=== PATIENT | male | born 1950 | race Caucasian/White ===

== ENCOUNTER 2016-11-24 02:22 | Emergency (ER) | payer OTHER ==
[~2016-11-24] VITALS: Ht 170.2 cm; Wt 66.3 kg
[~2016-11-24 02:22] MED LIST: ALBU6.7H INH; FOLI1TAB4 PO; LATA0.002 EACH EYE; LORA-361 PO; METH2.5T PO; MOBI7.5T PO; OMEP20TA PO; SIMV80TA PO; SULF500 PO
[2016-11-24 02:27] VITALS: BP 113/65; PULSE 68; RESP 18; TEMP 98.2; O2SAT 94
--- NOTE | 2016-11-24 03:10 | PD ---
HPI Chief Complaint: Pain: Acute or Chronic Time Seen by Provider: 03:06 Travel History International Travel<30 days: No Contact w/Intl Traveler<30days: No Traveled to known affect area: No History of Present Illness HPI The patient is a 66-year-old right-hand dominant male with a history of rheumatoid arthritis who is throwing a 4 x 4 the yard at around 3 PM this afternoon. Approximately 4 hours later he started feeling pain in the wrist. He denies any direct trauma. He has pain and swelling in the right wrist which is progressive and he cannot move his wrist. He has had this happen before with his rheumatoid arthritis. He admits to approximately 8 beers. He complains of sharp pain of an 810. PFSH Past Medical History Arthritis: Yes (RA) Asthma: Yes Cardiovascular Problems: Yes High Cholesterol: Yes COPD: Yes Diminished Hearing: No Diverticulitis: Yes GERD: Yes Hypertension: Yes Respiratory: Yes Immunizations Current: Yes Social History Alcohol Use: Yes (OCC) Tobacco Use: Yes (1 PPD) Substance Use: No Allergies-Medications (Allergen,Severity, Reaction): Coded Allergies: No Known Allergies (Verified , 11/24/16) Reported Meds & Prescriptions Reported Meds & Active Scripts Active Ibuprofen 600 Mg Tab 600 Mg PO TID Reported Allergy Relief (Loratadine) 10 Mg Tab 10 Mg PO DAILY Aspirin Children's (Aspirin) 81 Mg Chew 81 Mg CHEW DAILY Amlodipine (Amlodipine Besylate) 5 Mg Tab 5 Mg PO DAILY Simvastatin 20 Mg Tab 20 Mg PO DAILY Omeprazole 20 Mg Tab 20 Mg PO DAILY Mobic (Meloxicam) 7.5 Mg Tab 7.5 Mg PO DAILY Latanoprost Opth Drops (Latanoprost) 0.005% Drops 1 Drop EACH EYE HS Refrigerate until opened. Azulfidine (Sulfasalazine) 500 Mg Tab 3,000 Mg PO WEEKLY Proventil Hfa 6.7 GM Inh (Albuterol Sulfate) 90 Mcg/Act Aer 2 Puff INH Q6H PRN Review of Systems ROS Limitations: Intoxication Except as stated in HPI: all other systems reviewed are Neg Physical Exam Exam Limitations: Intoxication Narrative GENERAL: Well-nourished, well-developed patient in moderate apparent distress with his right wrist discomfort. He smells strongly of beer. He does appear somewhat intoxicated. HEAD: Normocephalic. EYES: No scleral icterus. No injection or drainage. NECK: Supple, trachea midline. No JVD or lymphadenopathy. CARDIOVASCULAR: Regular rate and rhythm without murmurs, gallops, or rubs. RESPIRATORY: Breath sounds equal bilaterally. No accessory muscle use. GASTROINTESTINAL: Abdomen soft, non-tender, nondistended. MUSCULOSKELETAL: No cyanosis, or edema. BACK: Nontender without obvious deformity. No CVA tenderness. Data Data Last Documented VS Vital Signs Date Time Temp Pulse Resp B/P (MAP) Pulse Ox O2 Delivery O2 Flow Rate FiO2 11/24/16 03:50 20 11/24/16 02:27 98.2 68 113/65 (81) 94 Orders Orders Wrist, Complete (Vtt2cuw) (11/24/16 03:10) Ketorolac Inj (Toradol Inj) (11/24/16 03:15) Splint Or Brace Apply/Monitor (11/24/16 03:11) Ice/Cold Pack (11/24/16 03:40) MDM Medical Decision Making Medical Screen Exam Complete: Yes Emergency Medical Condition: Yes Medical Record Reviewed: Yes Interpretation(s) X-rays show mild osteoarthritis right wrist but otherwise no acute findings. Differential Diagnosis Fracture wrist, dislocation wrist, arthrosis wrist Narrative Course The patient appears to have arthrosis of his wrist with swelling from the unusual activity he did today. He needs to rest, elevation and use the icepack in the first 24 hours. Diagnosis Primary Impression: Arthritis of right wrist Additional Instructions: Take the ibuprofen regularly for a few days to establish high anti-inflammatory levels. Elevate the wrist above your heart. In the first 24 hours the icepack may help. Follow-up with your primary care physician if he still have problems. Med/Other Pt SpecificInfo: Prescription(s) given Scripts Ibuprofen (Ibuprofen) 600 Mg Tab 600 MG PO TID, #44 TAB 0 Refills Prov: Bharat Harp MD 11/24/16 Disposition: 01 DISCHARGE HOME Condition: Stable Bharat Harp MD Nov 24, 2016 03:10
[2016-11-24] MEDS ORDERED: SIMV20TA PO (03:11)
[2016-11-24] MEDS ORDERED: KETOROLAC TROMETHAMINE 60 MG/2 ML (IM) VIAL IM ONE (03:15)
[2016-11-24] MEDS ORDERED: AMLO5TAB2 PO (03:17)
[2016-11-24] MEDS ORDERED: ALLE10TA PO (03:17)
[2016-11-24] MEDS ORDERED: ASPI81CH7 CHEW (03:17)
[2016-11-24] MEDS ORDERED: IBUP-232 PO (03:49)
--- NOTE | 2016-11-24 04:02 | RADRPT ---
EXAM DATE/TIME: 11/24/2016 03:23 [facility] COMPARISON: No previous studies available for comparison. INDICATIONS : Right wrist pain. MEDICAL HISTORY : None. SURGICAL HISTORY : None. ENCOUNTER: Initial ACUITY: 1 day PAIN SCORE: 8/10 LOCATION: Right upper extremity FINDINGS: Three view examination of the right wrist demonstrates no soft tissue swelling, dislocation, or fract ure. The carpal bones are in normal alignment. Mild osteoarthritis. Bony mineralization is normal. CONCLUSION: 1. No acute findings. Mild osteoarthritis of the right wrist. Anthony Warren MD on November 24, 2016 at 4:00 Board Certified Radiologist. This report was verified electronically.
[2016-11-24 04:26] VITALS: BP 118/72
== END 2016-11-24 04:28 | disposition home or self-care (01) ==
LOC: PHED 02:22
DX: M19.031 Primary osteoarthritis, right wrist (principal); I10 Essential (primary) hypertension; E78.00 Pure hypercholesterolemia, unspecified; F17.200 Nicotine dependence, unspecified, uncomplicated; Z87.39 Personal history of other diseases of the musculoskeletal system and connective tissue; Z87.09 Personal history of other diseases of the respiratory system; Z86.79 Personal history of other diseases of the circulatory system; Z87.19 Personal history of other diseases of the digestive system; X50.0XXA Overexertion from strenuous movement or load, initial encounter
CPT/HCPCS: 73110; 96372; 99284; J1885; L3908